=== PATIENT | male | born 1945 | race African-American/Black ===

== ENCOUNTER 2019-01-29 11:19 | Emergency (ER) | payer OTHER ==
[2019-01-29 12:58] LABS: Absolute Lymphocytes (CBC) 0.4 K/uL (0.7-4.9); Absolute Monocytes 0.5 K/uL (0.1-1.3); Absolute Neutrophil 1.4 K/uL (1.8-8.0); Basophils % 0.6 % (0-1.3); Eosinophils % 4.1 % (0-4.4); Hematocrit 39.9 % (39.6-49.0); Lymphocytes % 16.1 % (15.3-44.8); MPV 9.3 fL (7.6-11.3); Monocytes % 20.3 % (3.3-12.3); RBC Red Blood Cell Count 4.29 M/uL (4.33-5.43)
[2019-01-29 13:10] LABS: ALT/SGPT 119 U/L (12-78); AST/SGOT 211 U/L (15-37); Albumin 3.3 g/dL (3.4-5.0); Alkaline Phosphatase 53 U/L (45-117); BUN Blood Urea Nitrogen 14 mg/dL (7-18); Bicarbonate 28 mmol/L (21-32); Bilirubin Direct 0.2 mg/dL (0-0.2); Bilirubin Total 0.7 mg/dL (0.2-1.0); Glucose Level 67 mg/dL (74-106); Lipase 145 U/L (73-393); Potassium 4.3 mmol/L (3.5-5.1); Protein, Total 8.7 g/dL (6.4-8.2); Sodium Level 139 mmol/L (136-145)
--- NOTE | 2019-01-29 13:26 | EDPHYS ---
Physician Documentation [facility] Name: Emile Deluca Jr Age: 73 yrs Sex: Male : 1945 Arrival Date: 01/29/2019 Time: 11:20 Bed 24 Private MD: Unknown, Unknown ED Physician Kenisha Ding HPI: 01/29 12:08 This 73 yrs old Black Male presents to ER via Wheelchair with complaints of General ma2 Weakness. 12:08 generalized weakness. Onset: The symptoms/episode began/occurred gradually, 8 week(s) ma2 ago. Severity of symptoms: At their worst the symptoms were mild in the emergency department the symptoms are unchanged. The patient has not experienced similar symptoms in the past. Historical: - Allergies: 11:30 Iodine; sv - PMHx: 11:30 Rheumatoid Arthritis; sv - PSHx: 11:30 shoulder; sv - Immunization history:: Flu vaccine is up to date. - Social history:: Smoking status: Patient/guardian denies using tobacco, Patient/guardian denies using alcohol, street drugs, The patient lives with family. - Ebola Screening: : No symptoms or risks identified at this time. - Family history:: not pertinent. ROS: 12:08 Constitutional: Negative for fever, chills, and weight loss. ma2 12:08 Constitutional: Positive for malaise, Negative for chills, fatigue. 12:08 All other systems are negative. Exam: 12:08 Constitutional: This is a well developed, well nourished patient who is awake, alert, ma2 and in no acute distress. Head/Face: Normocephalic, atraumatic. Eyes: Pupils equal round and reactive to light, extra-ocular motions intact. Lids and lashes normal. Conjunctiva and sclera are non-icteric and not injected. Cornea within normal limits. Periorbital areas with no swelling, redness, or edema. ENT: Nares patent. No nasal discharge, no septal abnormalities noted. Tympanic membranes are normal and external auditory canals are clear. Oropharynx with no redness, swelling, or masses, exudates, or evidence of obstruction, uvula midline. Mucous membranes moist. Chest/axilla: Normal chest wall appearance and motion. Nontender with no deformity. No lesions are appreciated. Cardiovascular: Regular rate and rhythm with a normal S1 and S2. No gallops, murmurs, or rubs. Normal PMI, no JVD. No pulse deficits. Respiratory: Lungs have equal breath sounds bilaterally, clear to auscultation and percussion. No rales, rhonchi or wheezes noted. No increased work of breathing, no retractions or nasal flaring. Abdomen/GI: Soft, non-tender, with normal bowel sounds. No distension or tympany. No guarding or rebound. No evidence of tenderness throughout. Back: No spinal tenderness. No costovertebral tenderness. Full range of motion. Skin: Warm, dry with normal turgor. Normal color with no rashes, no lesions, and no evidence of cellulitis. MS/ Extremity: Pulses equal, no cyanosis. Neurovascular intact. Full, normal range of motion. Neuro: Awake and alert, GCS 15, oriented to person, place, time, and situation. Cranial nerves II-XII grossly intact. Motor strength 5/5 in all extremities. Sensory grossly intact. Cerebellar exam normal. Normal gait. Vital Signs: 11:31 BP 121 / 78; Pulse 76; Resp 16; Temp 98.1(O); Weight 58.51 kg; Height 5 ft. 9 in. sv (175.26 cm); 14:04 BP 118 / 74; Pulse 74; Resp 16; Temp 98.1; Pulse Ox 99% ; Pain 5/10; ls4 11:31 Body Mass Index 19.05 (58.51 kg, 175.26 cm) sv MDM: 11:32 Patient medically screened. [facility] 12:08 Differential Diagnosis sepsis, hypothyroidism vs side effect to medication . [facility] 13:23 Data reviewed: vital signs, nurses notes. Counseling: I had a detailed discussion with ma2 the patient and/or guardian regarding: the historical points, exam findings, and any diagnostic results supporting the discharge/admit diagnosis, the presence of at least one elevated blood pressure reading (>120/80) during this emergency department visit, the need for outpatient follow up. ED course: has low wbc count however no other component of SIRS, his vs wnl, otherwise workup wnl.. needs outpatient workup for weakness and f/u with his rheumatology as this might be side effect to his medicaiton . 01/29 11:44 Order name: Basic Metabolic Panel; Complete Time: 13:22 [facility] 01/29 11:44 Order name: CBC with Diff [facility] 01/29 11:44 Order name: Creatinine for Radiology; Complete Time: 13:22 [facility] 01/29 11:44 Order name: Hepatic Function; Complete Time: 13:22 [facility] 01/29 11:44 Order name: Lipase; Complete Time: 13:22 [facility] 01/29 11:44 Order name: TSH; Complete Time: 13: [facility] 01/29 11:44 Order name: IV Saline Lock; Complete Time: 12:37 [facility] 01/29 11:44 Order name: Labs collected and sent; Complete Time: 12:37 [facility] 01/29 11:44 Order name: T4 Free; Complete Time: 13: [facility] 01/29 11:44 Order name: Urine Dipstick-Ancillary (obtain specimen); Complete Time: 13: [facility] 01/29 13:32 Order name: Urine Dipstick--Ancillary (enter results) 01/29 13:42 Order name: Manual Differential EDMS Administered Medications: No medications were administered Disposition: 01/29/19 13:25 Discharged to Home. Impression: Weakness. - Condition is Stable. - Discharge Instructions: Weakness, [id number]. - Medication Reconciliation Form, Thank You Letter, Antibiotic Education, Prescription Opioid Use form. - Follow up: Private Physician; When: Tomorrow; Reason: Continuance of care. Signatures: Dispatcher [employer] EDMS Eryn Adames RN RN Kenisha Ding MD MD [facility] Stephany Elmore RN RN ls4 Corrections: (The following items were deleted from the chart) 13:50 13:25 01/29/2019 13:25 Discharged to Home. Impression: Weakness. Condition is Stable. ls4 Forms are Medication Reconciliation Form, Thank You Letter, Antibiotic Education, Prescription Opioid Use. Follow up: Private Physician; When: Tomorrow; Reason: Continuance of care. [facility] 14:04 13:50 01/29/2019 13:25 Discharged to Home. Impression: Weakness. Condition is Stable. ls4 Discharge Instructions: Weakness, [id number]. Forms are Medication Reconciliation Form, Thank You Letter, Antibiotic Education, Prescription Opioid Use. Follow up: Private Physician; When: Tomorrow; Reason: Continuance of care. ls4
--- NOTE | 2019-01-29 13:26 | ER ---
Nurse's Notes [facility] Name: Emile Deluca Jr Age: 73 yrs Sex: Male : 1945 Arrival Date: 01/29/2019 Time: 11:20 Bed 24 Private MD: Unknown, Unknown Diagnosis: Weakness Presentation: 01/29 11:28 Presenting complaint: Patient states: generalized weakness x 2-3 weeks, reports losing sv about 55 pounds in a year. Transition of care: patient was not received from another setting of care. Onset of symptoms is unknown. Care prior to arrival: None. 11:28 Method Of Arrival: Wheelchair sv 11:28 Acuity: JENNIFER 3 sv 11:40 Risk Assessment: Do you want to hurt yourself or someone else? Patient reports no ls4 desire to harm self or others. Initial Sepsis Screen: Does the patient meet any 2 criteria? No. Patient's initial sepsis screen is negative. Does the patient have a suspected source of infection? No. Patient's initial sepsis screen is negative. Triage Assessment: 11:34 General: Appears uncomfortable, Behavior is calm, cooperative. ls4 12:00 Pain: Complains of pain in general, joints Pain currently is 5 out of 10 on a pain ls4 scale. 12:00 Neuro: No deficits noted. Cardiovascular: No deficits noted. Respiratory: No deficits ls4 noted. Musculoskeletal: Circulation, motion, and sensation intact. Capillary refill < 3 seconds, Range of motion: intact in all extremities. Historical: - Allergies: 11:30 Iodine; sv - PMHx: 11:30 Rheumatoid Arthritis; sv - PSHx: 11:30 shoulder; sv - Immunization history:: Flu vaccine is up to date. - Social history:: Smoking status: Patient/guardian denies using tobacco, Patient/guardian denies using alcohol, street drugs, The patient lives with family. - Ebola Screening: : No symptoms or risks identified at this time. - Family history:: not pertinent. Screenin:39 Abuse screen: Denies threats or abuse. Denies injuries from another. Nutritional ls4 screening: No deficits noted. Tuberculosis screening: No symptoms or risk factors identified. Fall Risk None identified. Assessment: 13:52 Reassessment: Patient appears in no apparent distress at this time. Patient and/or ls4 family updated on plan of care and expected duration. Pain level reassessed. Patient is alert, oriented x 3, equal unlabored respirations, skin warm/dry/pink. Vital Signs: 11:31 BP 121 / 78; Pulse 76; Resp 16; Temp 98.1(O); Weight 58.51 kg; Height 5 ft. 9 in. sv (175.26 cm); 14:04 BP 118 / 74; Pulse 74; Resp 16; Temp 98.1; Pulse Ox 99% ; Pain 5/10; ls4 11:31 Body Mass Index 19.05 (58.51 kg, 175.26 cm) ED Course: 11:20 Patient arrived in ED. ag5 11:21 Unknown, Unknown is Private Physician. ag5 11:29 Triage completed. sv 11:31 Arm band placed on. sv 11:32 Kenisha Ding MD is Attending Physician. ma2 11:32 Inserted saline lock: 20 gauge in right hand, using aseptic technique. Blood collected. ls4 11:32 Patient maintains SpO2 saturation greater than 95% on room air. ls4 11:34 Stephany Elmore, RN is Primary Nurse. ls4 11:39 Patient has correct armband on for positive identification. Placed in gown. Bed in low ls4 position. Call light in reach. Side rails up X 1. Pulse ox on. NIBP on. Warm blanket given. 11:39 No provider procedures requiring assistance completed. ls4 13:50 IV discontinued, intact, bleeding controlled, No redness/swelling at site. ls4 Administered Medications: No medications were administered Outcome: 13:25 Discharge ordered by . maSalo 13:50 Discharged to home with family. ls4 13:50 Condition: stable 13:50 Discharge instructions given to patient, Instructed on discharge instructions, follow up and referral plans. medication usage, Demonstrated understanding of instructions, follow-up care, medications. 14:04 Patient left the ED. ls4 Signatures: Eryn Adames RN RN Kenisha Ding MD MD ma2 Stewart, Lisa, RN RN 4 Kesha Arizmendi [facility]
[2019-01-29 13:42] LABS: Blood Morphology Comment NOT SEEN (NOT SEEN); Platelet Estimate ADEQ
[2019-01-29 14:01] LABS: Urine Blood NEGATIVE (NEG); Urine Glucose NEGATIVE (NEG); Urine Protein TRACE (NEG); Urine Specific Gravity 1.015 (1.005-1.030)
== END 2019-01-29 14:04 | disposition home or self-care (01) ==
LOC: ER 11:19
DX: R53.1 Weakness (principal); Z91.09 Other allergy status, other than to drugs and biological substances
CPT/HCPCS: 36415; 80048; 80076; 81003; 83690; 84439; 84443; 85025; 99284